=== PATIENT | female | born 1995 | race Hispanic/Latino ===

== ENCOUNTER 2018-06-25 20:54 | Emergency (ER) | payer OTHER, SELFPAY ==
[2018-06-25 21:02] VITALS: BP 122/81; PULSE 86; RESP 18; TEMP 37.1; O2SAT 98; BMI 23.6
--- NOTE | 2018-06-25 21:09 | ED.FEMALEGU ---
HPI - Female Genitourinary General Chief complaint: Urogenital-Female Stated complaint: Vaginal pain Time Seen by Provider: 06/25/18 21:08 Source: patient Mode of arrival: ambulatory Limitations: no limitations History of Present Illness HPI Narrative: Patient is a 22-year-old female who presents with painful frequent urination. She denies any flank pain or abdominal pain. She also is having some clear vaginal discharge. She denies that it has a foul smell. She did treat herself [id number] with Monistat she said it did not help her symptoms. She never had thick white discharge. She does have some pruritus as well. MD Complaint: dysuria and vaginal discharge Related Data Previous Rx's Medication Instructions Recorded fluconazole 200 mg PO DAILY #1 tab 06/25/18 sulfamethoxazole-trimethoprim 1 tab PO BID 4 Days #8 tab 06/25/18 [Bactrim DS] Allergies Allergy/AdvReac Type Severity Reaction Status Date / Time No Known Drug Allergies Allergy Verified 06/25/18 21:05 Review of Systems Review of Systems All systems reviewed & are unremarkable except as noted in HPI and below Constitutional Denies chills, Denies fever(s), Denies lethargy and Denies weakness Cardiovascular Denies chest pain, Denies irregular heart rhythm, Denies lightheadedness, Denies palpitations, Denies dyspnea, Denies dyspnea on exertion and Denies orthopnea Respiratory Denies cough, Denies dyspnea, Denies dyspnea on exertion and Denies wheezing Gastrointestinal Gastrointestinal: Denies abdominal pain, Denies change in bowel habits, Denies diarrhea, Denies nausea and Denies vomiting Genitourinary Reports as per HPI Musculoskeletal Denies back pain, Denies muscle weakness, Denies numbness and Denies tingling Integumentary/Breasts Denies pruritus, Denies erythema, Denies rash and Denies wounds Neurologic Denies numbness, Denies tingling and Denies weakness Endocrine Denies palpitations Allergic/Immunologic Denies wheezing [facility] Medical History History of chlamydia (Acute) Social History Smoking Status: Never smoker alcohol intake: never substance use type: does not use Comment: [employer] Exam Initial Vital Signs Initial Vital Signs: Vital Signs Temperature 98.7 F 06/25/18 21:02 Pulse Rate 86 06/25/18 21:02 Respiratory Rate 18 06/25/18 21:02 Blood Pressure 122/81 06/25/18 21:02 Pulse Oximetry 98 06/25/18 21:02 GENERAL: [Well-appearing, well-nourished] and in [no acute] distress. HEENT: Head atraumatic,EOMI, pupils reactive, neck is supple CARDIOVASCULAR: Regular rate and rhythm without murmurs, rubs or gallops. RESPIRATORY: Breath sounds equal bilaterally, no wheezes rales or rhonchi. ABDOMEN: Soft, nontender. Normoactive bowel sounds all 4 quadrants. No guarding or rebound. PELVIC: External genitalia is normal, scant amount of white discharge not thick no foul smell, cervical os is closed, no adnexal tenderness : No CVA tenderness EXTREMITIES: Normal range of motion, no clubbing or edema. Neurovascularly intact NEUROLOGICAL: Alert and oriented x4.Normal gait and speech. SKIN: Warm, dry, no laceration, no petechiae, no rashes or lesions. Course Orders Ordered: ED Orders 06/25/18 21:30 Urinalysis and Microscopic Stat Urine Chlamydia Gonorrhea PCR Stat Urine Culture Stat 06/25/18 21:38 Genital Culture Stat Wet Prep Tric BV Mari Stat 06/25/18 21:44 Test Urine Stat Discontinued Medications Ibuprofen (Advil) 800 mg PO NOW ONE Stop: 06/25/18 21:45 Last Admin: 06/25/18 21:59 Dose: 800 mg Phenazopyridine HCl (Pyridium 100mg Prepack) 1 bottle MISC SEEINSTR ONE Stop: 06/25/18 22:32 Last Admin: 06/25/18 22:36 Dose: 1 bottle Trimethoprim/Sulfamethoxazole (Bactrim Ds Prepack) 1 bottle MISC SEEINSTR ONE Stop: 06/25/18 22:26 Vital Signs - 8 hr 06/25/18 21:02 06/25/18 22:59 Temperature 98.7 F Pulse Rate 86 82 Respiratory Rate 18 16 Blood Pressure 122/81 113/66 Pulse Oximetry 98 99 MDM - Female Genitourinary Lab Data Attestation: I reviewed the patient's lab results. Lab Results 06/25/18 06/25/18 06/25/18 Range/Units 21:30 21:30 21:44 Urine Color Yellow Urine Appearance Sl cloudy Urine pH 5.0 (4.5-8.0) Ur Specific [place] >=1.030 H (1.000-1.035) Urine Protein 1+ H (Negative) Urine Glucose (UA) Negative (Normal) g/dL Urine Ketones Trace H (NEGATIVE) Urine Occult Blood 3+ H (Negative) Urine Nitrate Positive H (Negative) Urine Bilirubin Negative (NEGATIVE) Urine Urobilinogen 0.2 (0.2) E.U./dL Ur Leukocyte Esterase 1+ H (NEGATIVE) Urine RBC 1-5/hpf (0-5/HPF) Urine WBC 30-100/hpf H (0-5/HPF) Ur Squamous Epith Cells 1-5 /hpf Urine Bacteria Many (>30) H (None) Urine Mucus 2+ H (Negative) Ur Culture Indicated? Specimen cultured Micro UA Comment Not Reportable Urine Test Negative (Negative) Ur Chlamydia DNA (PCR) Not detected N gonorrhoeae DNA (PCR) Not detected Wet prep shows moderate yeast, no Trichomonas no clue cells Discharge Plan Departure Patient Disposition: Home Clinical Impression: Urinary tract infection, Candidiasis of vagina Discharge Date/Time: 06/25/18 22:49 Interventions: ED Discharge Assessment Last Done: 06/25/18 22:59 Instructions: Vaginal Yeast Infection, DI for Urinary Tract Infection (UTI) Activity Restrictions/Additional Instructions: *You have been diagnosed with UTI, vaginal candidiasis *What to do: Increase fluid intake *Continue to take medications as directed Take antibiotics until gone then take yeast infection medication -Bactrim 1 pill twice a day for 5 days total -Pyridium 1 tablet 3 times a day only if needed for painful urination, only take for 3 days -fluconazole 1 tablet x1 after antibiotics *Follow up with your primary care provider in 2-3 days *Return to ER if you should have increasing abdominal pain, fever, back pain or any new, worsening or concerning symptoms Prescriptions: New sulfamethoxazole-trimethoprim [Bactrim DS] 800-160 mg tablet 1 tab PO BID 4 Days Qty: 8 RF: 0 fluconazole 200 mg tablet 200 mg PO DAILY Qty: 1 RF: 0 Referrals: [facility] [Provider Group]
--- NOTE | 2018-06-25 21:45 | PC.NURSE ---
Assisted DR Dunlap for pelvic exam. Obtained Gc-Chlamydia and wet prep and genital culture obtained and sent out to lab.
[2018-06-25 21:46] LABS: Bilirubin Urine UA NEGATIVE (NEGATIVE); Color Urine UA YELLOW; Glucose Urine UA NEGATIVE (Normal); Ketones Urine UA TRACE (NEGATIVE); Leukocyte Esterase Urine UA 1+ (NEGATIVE); Nitrite Urine UA POSITIVE (Negative); Occult Blood Urine UA 3+ (Negative); Protein Urine UA 1+ (Negative); Specific Gravity Urine UA >=1.030 (1.000-1.035); Urobilinogen Urine UA 0.2 E.U./dL (0.2)
[2018-06-25 21:47] LABS: Appearance Urine UA SL CLOUDY
[2018-06-25 21:55] LABS: Bacteria Urine Many (>30); Culture Indicated Urine Specimen Cultured; Mucus Urine 2+ (Negative); RBC Urine 1-5/HPF (0-5/HPF); Squamous Epithelial Cell Urine 1-5 /HPF; WBC Urine 30-100/HPF (0-5/HPF)
[2018-06-25 21:58] LABS: Pregnancy Test Urine Negative (Negative)
[2018-06-25] MEDS: IBUPROFEN 400 MG TABLET 800 MG PO (21:59)
[2018-06-25] MEDS: PHENAZOPYRIDINE 100 MG PREPACK 1 BOTTLE MISC (22:36)
[2018-06-25 22:59] VITALS: BP 113/66; PULSE 82; RESP 16; O2SAT 99
[2018-06-25 23:07] LABS: Urine N gonorrhoeae NOT DETECTED
[2018-06-25 23:16] LABS: Urine Chlamydia NOT DETECTED
== END 2018-06-25 22:49 | disposition home or self-care (01) ==
PROVIDERS: Emergency Provider Emergency Medicine
DX: N39.0 Urinary tract infection, site not specified (principal); B37.3 Candidiasis of vulva and vagina
CPT/HCPCS: 81001; 81025; 87070; 87077; 87086; 87186; 87205; 87210; 87491; 87591; 99282; 99283